=== PATIENT | female | born 1955 | race Caucasian/White ===

== ENCOUNTER 2016-11-12 12:50 | Emergency (ER) | payer BC ==
[~2016-11-12 12:50] MED LIST: ATENOLOL25 MG PO; B-12250 MCG PO; EQL FISH OIL 1,1 CA1 PO; GLUCOPHAGE500 MG PO; GLUCOSAMIN-CHO1 EACH PO; MECLIZINE HCL25 MG; METOLAZONE2.5 MG; MIRAPEX; MIRAPEX0.5 MG; NORCO 5/325 TAB1 TAB PO; POTASSIUM CHLO10 MEQ; SIMVASTATIN20 MG PO; SPIRONOLACTONE25 MG; TORSEMIDE10 MG; ZESTRIL10 M2 PO
[2016-11-12] MEDS ORDERED: REVIA50 M1 PO (13:43)
[2016-11-12] MEDS ORDERED: XIGDUO XR 10 M1 EAC1 PO (13:43)
[2016-11-12] MEDS ORDERED: ALDACTONE25 M1 PO (13:44)
[2016-11-12] MEDS ORDERED: AMITRIPTYLINE H25 M1 PO (13:44)
[2016-11-12] MEDS ORDERED: PRINIVIL10 M1 PO (13:45)
[2016-11-12] MEDS ORDERED: DITROPAN XL15 M1 PO (13:46)
[2016-11-12] MEDS ORDERED: LASIX20 M1 PO (13:46)
[2016-11-12] MEDS ORDERED: PRAMIPEXOLE D0.75 MG PO (13:47)
[2016-11-12] MEDS ORDERED: PHENTERMINE H37.5 M1 PO (13:49)
[2016-11-12] MEDS ORDERED: DEPO-PROVE150 MG/1 M SC (13:51)
[2016-11-12 14:23] LABS: URINE BILIRUBIN NEGATIVE (NEG); URINE BLOOD NEGATIVE (NEG); URINE GLUCOSE (UA) LARGE (NEG); URINE KETONE NEGATIVE (NEG); URINE LEUKOCYTE ESTERASE POSITIVE (NEG); URINE NITRITE NEGATIVE (NEG); URINE PH 6.5 (5.0-8.0); URINE PROTEIN MODERATE (NEG)
[2016-11-12 14:25] LABS: URINE APPEARANCE HAZY; URINE COLOR YELLOW
[2016-11-12 14:39] LABS: URINE BACTERIA 3+; URINE RBC 0 /[HPF] (0-5)
[2016-11-12] MEDS ORDERED: CENTRUM COMPLE1 EAC1 PO (14:52)
[2016-11-12] MEDS ORDERED: GLUCOSAMINE CH1 EA10 PO (14:53)
[2016-11-12] MEDS ORDERED: FISH OIL 1,2001 EAC5 PO (14:54)
[2016-11-12] MEDS ORDERED: CIPRO500 M2 PO (15:26)
[2016-11-12] MEDS ORDERED: CYCLOBENZAPRINE10 M1 PO (15:31)
== END 2016-11-12 15:52 ==
LOC: EDMED 12:50
PROVIDERS: Nurse Practitioner Family
DX: N39.0 Urinary tract infection, site not specified (principal); M54.42 Lumbago with sciatica, left side; E11.9 Type 2 diabetes mellitus without complications; I10 Essential (primary) hypertension; Z85.3 Personal history of malignant neoplasm of breast; Z88.8 Allergy status to other drugs, medicaments and biological substances; Z87.891 Personal history of nicotine dependence; Z98.890 Other specified postprocedural states; Z79.82 Long term (current) use of aspirin; Z79.899 Other long term (current) drug therapy
CPT/HCPCS: J1885; J2360